=== PATIENT | male | born 1930 | race Caucasian/White ===

== ENCOUNTER 2019-01-28 11:54 | Emergency (ER) | payer MEDICARE ==
[~2019-01-28] VITALS: Ht 185.4 cm; Wt 81.6 kg
[2019-01-28] MEDS ORDERED: DIATRIZOATE MEGL/DIATRIZOA SOD 30 ML BTL PO ONE (12:10)
[2019-01-28 13:09] LABS: BASOPHILS % 0.2 % (0.0-1.0); EOSINOPHILS # (AUTO) 0.1 (0.0-0.4); EOSINOPHILS % 2.3 % (0.0-6.0); HEMOGLOBIN 11.6 g/dL (14.0-18.0); LYMPHOCYTES # (AUTO) 0.5 (1.0-3.2); LYMPHOCYTES % 11.3 % (18.0-39.1); MEAN CORPUSCULAR HEMOGLOBIN 29.1 pg (28-32); MEAN CORPUSCULAR HGB CONC 30.5 g/dL (31-35); MEAN CORPUSCULAR VOLUME 95.5 fL (81-99); MONOCYTES # (AUTO) 0.5 (0.2-0.8); MONOCYTES % 10.6 % (4.4-11.3); NEUTROPHILS # (AUTO) 3.6 (2.1-6.9); NEUTROPHILS % 75.4 % (38.7-80.0); PLATELET COUNT 124 x10e3/uL (140-360); RED BLOOD COUNT 3.98 x10e6/uL (4.3-5.7); RED CELL DISTRIBUTION WIDTH 14.8 % (11.7-14.4)
[2019-01-28 13:18] LABS: BILIRUBIN,URINE SMALL (NEGATIVE); CLARITY,URINE CLEAR (CLEAR); COLOR,URINE YELLOW (YELLOW); KETONES,URINE NEGATIVE (NEGATIVE); LEUKOCYTE ESTERASE ,URINE NEGATIVE (NEGATIVE); NITRITE,URINE NEGATIVE (NEGATIVE); PROTEIN,URINE DIPSTICK 1+ (NEGATIVE); URINE UROBILINOGEN 1 mg/dL (0.2 - 1)
[2019-01-28 13:24] LABS: INR 1.13
[2019-01-28 13:25] LABS: PARTIAL THROMBOPLASTIN TIME 28.1 seconds (23.8-35.5)
[2019-01-28 13:28] LABS: ALANINE AMINOTRANSFERASE 41 IU/L (0-55); ALBUMIN 2.1 g/dL (3.5-5.0); ALBUMIN/GLOBULIN RATIO 0.5 (0.8-2.0); ALKALINE PHOSPHATASE 112 IU/L (40-150); AMYLASE 43 U/L (25-125); ANION GAP 9.2 mmol/L (8-16); BLOOD UREA NITROGEN 22 mg/dL (7-26); BUN/CREATININE RATIO 16 (6-25); CALCIUM 8.5 mg/dL (8.4-10.2); CARBON DIOXIDE 32 mmol/L (22-29); CHLORIDE 101 mmol/L (98-107); CREATINE KINASE 56 IU/L (30-200); CREATININE, SERUM 1.36 mg/dL (0.72-1.25); EST GLOMERULAR FILTRATION RATE 50 ML/MIN (60-); GLUCOSE 104 mg/dL (74-118); LIPASE 15 U/L (8-78); POTASSIUM 4.2 mmol/L (3.5-5.1); SODIUM 138 mmol/L (136-145)
[2019-01-28 13:42] LABS: BACTERIA,URINE FEW /HPF; EPITHELIAL CELLS,URINE RARE /LPF; WBC,URINE (MAN) 0-5 /HPF (0-5)
[2019-01-28] MEDS ORDERED: SODIUM CHLORIDE 0.9% 500ML 500 ML IV STA (13:44)
--- NOTE | 2019-01-28 14:56 | Diagnostic Imaging Report ---
EXAMINATION: CHEST SINGLE (PORTABLE) INDICATION: Abdominal distention COMPARISON: None FINDINGS: LINES/TUBES:None LUNGS:The lungs are well-inflated. No focal consolidation or pulmonary edema. PLEURA:No pleural effusion or pneumothorax. MEDIASTINUM:The cardiomediastinal silhouette appears normal in size and shape. Atherosclerotic calcifications of the thoracic aorta. BONES/SOFT TISSUES:No acute osseous injury. ABDOMEN:No free air under the diaphragm. IMPRESSION: No focal consolidation or pulmonary edema. Signed by: Ying Whitehead MD on 01/28/2019 2:53 PM
--- NOTE | 2019-01-28 15:36 | Diagnostic Imaging Report ---
EXAM: CT Abdomen and Pelvis WITH intravenous contrast INDICATION: Abdominal distention, pain COMPARISON: None. TECHNIQUE: Abdomen and pelvis were scanned utilizing a multidetector helical scanner from the lung base to the pubic symphysis after administration of IV contrast. Coronal and sagittal reformations were obtained. Routine protocol was performed. Scan was performed during portal venous phase. IV CONTRAST: 100mL of Isovue 370 ORAL CONTRAST: Gastrografin RADIATION DOSE: Total DLP: 638.97 mGy*cm Dose modulation, iterative reconstruction, and/or weight based adjustment of the mA/kV was utilized to reduce the radiation dose to as low as reasonably achievable. FINDINGS: LOWER THORAX: Normal. HEPATOBILIARY: Liver cirrhosis. Numerous hypodense masses throughout the right and left liver highly concerning for hepatocellular carcinoma. The largest of these at the hepatic dome measures up to 7.0 cm maximum diameter. No significant intrahepatic biliary ductal dilation. Numerous calcified gallstones in the gallbladder without CT evidence of cholecystitis. SPLEEN: No splenomegaly. PANCREAS: No focal masses or ductal dilatation. ADRENALS: Diffuse thickening of the left adrenal gland with more focal nodule measuring 2.5 x 2.5 cm. Right adrenal appears unremarkable. KIDNEYS/URETERS: No hydronephrosis or renal calculi. Numerous bilateral renal cysts, measuring up to 7.4 x 6.5 cm on the right and 1.8 cm on the left. PELVIC ORGANS/BLADDER: Prostatomegaly to 5.2 cm. PERITONEUM / RETROPERITONEUM: Small to moderate volume ascites. No free air. LYMPH NODES: Enlarged 2.0 x 1.4 cm gastrohepatic lymph node. VESSELS: Diffuse atherosclerotic calcifications of the nonaneurysmal abdominal aorta and major branches. Extensive upper abdominal portosystemic varices. GI TRACT: Diverticulosis. No CT evidence of diverticulitis. No abnormal bowel wall thickening. No bowel obstruction. BONES AND SOFT TISSUES: No acute osseous injury. Degenerative changes of the visualized spine. No suspicious lytic or blastic lesions. IMPRESSION: Hepatic cirrhosis with numerous hypodense masses throughout the right and left liver highly concerning for hepatocellular carcinoma. The largest of these measures up to 7.0 cm at the hepatic dome. Enlarged 2.0 x 1.4 cm gastrohepatic lymph node, concerning for metastatic involvement. Left adrenal diffuse thickening with more focal 2.5 x 2.5 cm nodule. In the presence of highly suspected hepatocellular malignancy, this is also concerning for metastasis. 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 Cholelithiasis without CT evidence of cholecystitis. Prostatomegaly. Signed by: Ying Whitehead MD on 01/28/2019 3:33 PM
[2019-01-28 16:23] VITALS: BP 134/67
[2019-01-28] MEDS ORDERED: SODIUM CHLORIDE 0.9% 50ML 50 ML ONE (20:40)
[2019-01-28] MEDS ORDERED: IOPAMIDOL 370 MG/ML 200 ML INFUS..BTL INJ ONE (20:40)
== END 2019-01-28 16:21 | disposition home or self-care (01) ==
LOC: ER 11:54
DX: R06.02 Shortness of breath (principal); C22.9 Malignant neoplasm of liver, not specified as primary or secondary; J44.9 Chronic obstructive pulmonary disease, unspecified; Z87.891 Personal history of nicotine dependence
CPT/HCPCS: 36415; 71045; 74177; 80053; 81001; 82150; 82550; 82553; 83690; 84484; 85025; 85610; 85730; 87086; 93005; 99284; J7040; Q9967